=== PATIENT | male | born 1965 | race Caucasian/White ===

== ENCOUNTER 2017-07-24 21:29 | Emergency (ER) | payer OTHER ==
[~2017-07-24] VITALS: Ht 175.3 cm; Wt 97.7 kg
[~2017-07-24 21:29] MED LIST: CEPH250 PO; CIAL20TA PO; ESOM1CAP6 PO; HYDR25TA5 PO; LISI-515 PO; PERC5TAB12 PO; PRAV40TA2 PO
[2017-07-24 21:35] VITALS: BP 133/66; PULSE 92; RESP 16; TEMP 98.1
[2017-07-24 21:42] VITALS: BP 141/67; PULSE 89; RESP 16; O2SAT 96
[2017-07-24] MEDS ORDERED: SODIUM CHLOR 0.9% 1000 ML INJ 1,000 ML IV ONE (21:51)
[2017-07-24] MEDS ORDERED: SODIUM CHLORIDE 0.9% FLUSH 10 ML FLUSH IVF PRN (22:00)
[2017-07-24 22:21] LABS: AUTOMATED NEUTROPHIL # 7.8 TH/MM3 (1.8-7.7); BASOPHIL # 0.2 TH/MM3 (0-0.2); BASOPHIL % 1.3 % (0.0-2.0); EOSINOPHIL # 0.1 TH/MM3 (0-0.4); EOSINOPHIL % 0.9 % (0.0-4.0); HEMATOCRIT 48.3 % (39.0-51.0); LYMPH % 20.8 % (9.0-44.0); LYMPHOCYTE # 2.4 TH/MM3 (1.0-4.8); MEAN CELL VOLUME 90.1 FL (80.0-100.0); MEAN CORPUSCULAR HEMOGLOBIN 31.2 PG (27.0-34.0); MEAN CORPUSCULAR HGB CONC 34.6 % (32.0-36.0); MONO % 9.5 % (0.0-8.0); NEUT % 67.5 % (16.0-70.0); PLATELET COUNT 204 TH/MM3 (150-450); RED BLOOD COUNT 5.36 MIL/MM3 (4.50-5.90); RED CELL DISTRIBUTION WIDTH 13.1 % (11.6-17.2); WHITE BLOOD COUNT 11.6 TH/MM3 (4.0-11.0)
[2017-07-24 22:22] LABS: HEMO FLAGS AUTO DIFF
[2017-07-24 22:40] LABS: ANION GAP 12 MEQ/L (5-15); BLOOD UREA NITROGEN 12 MG/DL (7-18); CHLORIDE 94 MEQ/L (98-107); GLOMERULAR FILTRATION RATE 65 ML/MIN (>89); MAGNESIUM 2.1 MG/DL (1.5-2.5); POTASSIUM 3.1 MEQ/L (3.5-5.1); SODIUM (NA) 133 MEQ/L (136-145)
[2017-07-24 22:42] VITALS: BP 138/83; PULSE 84; RESP 16; O2SAT 96
[2017-07-24 22:44] LABS: CREATINE KINASE 524 U/L (39-308)
[2017-07-24 22:56] LABS: CKMB 2.9 NG/ML (0.5-3.6)
--- NOTE | 2017-07-24 22:59 | PD ---
HPI Chief Complaint: Syncope/Near-Syncope Time Seen by Provider: 21:36 Travel History International Travel<30 days: No Contact w/Intl Traveler<30days: No Traveled to known affect area: No History of Present Illness HPI 52-year-old male was on his second slice of [employer] when he suddenly became unresponsive. He is unresponsive on and off for his to call EMS and he recalls their arrival however nothing in the interim. EMS reports of blood pressure on scene of 98 systolic. Profuse diaphoresis reported by patient. He states today was a normal day for him with compliance with antihypertensives including hydrochlorothiazide and lisinopril. He has no chest pain shortness of breath nausea vomiting or fever in the ER.. PFSH Past Medical History Anxiety: Yes Depression: Yes Heart Rhythm Problems: No Cardiac Catheterization: No Cardiovascular Problems: Yes High Cholesterol: Yes Congestive Heart Failure: No Diabetes: No Hypertension: Yes Myocardial Infarction: No Tetanus Vaccination: > 5 Years Influenza Vaccination: No Past Surgical History Coronary Artery Bypass Graft: No Tonsillectomy: Yes (AGE 3) Other Surgery: Yes (vasectomy) Social History Alcohol Use: Yes (3-4 BEERS/DAY) Tobacco Use: Yes (1 PPD) Substance Use: No Allergies-Medications (Allergen,Severity, Reaction): Coded Allergies: atorvastatin (Verified Allergy, Unknown, Cramping, 07/24/17) Reported Meds & Prescriptions Reported Meds & Active Scripts Active Pravastatin 40 Mg Tab 40 Mg PO DAILY Lisinopril 20 Mg Tab 20 Mg PO DAILY Hydrochlorothiazide 25 Mg Tab 25 Mg PO DAILY Cialis (Tadalafil) 20 Mg Tab 20 Mg PO DAILY PRN Do not exceed 1 dose/day. Review of Systems Except as stated in HPI: all other systems reviewed are Neg General / Constitutional: No: Fever Physical Exam Narrative GENERAL: 52-year-old male well-nourished well-developed no acute distress SKIN: Skin is warm dry well perfused. HEAD: Atraumatic. Normocephalic. EYES: Extractor muscles are normal. He was are equal round and reactive to light. Gaze is conjugate. ENT: No nasal bleeding or discharge. Mucous membranes pink and moist. NECK: Trachea midline. No JVD. CARDIOVASCULAR: No murmur. Regular rhythm. Rate about 80. RESPIRATORY: No accessory muscle use. Clear to auscultation. Breath sounds equal bilaterally. GASTROINTESTINAL: Abdomen soft, non-tender, nondistended. Hepatic and splenic margins not palpable. MUSCULOSKELETAL: Extremities without clubbing, cyanosis, or edema. No obvious deformities. NEUROLOGICAL: Awake and alert. No obvious cranial nerve deficits. Motor grossly within normal limits. Five out of 5 muscle strength in the arms and legs. Normal speech. PSYCHIATRIC: No suicidal or homicidal ideation. Data Data Last Documented VS Vital Signs Date Time Temp Pulse Resp B/P (MAP) Pulse Ox O2 Delivery O2 Flow Rate FiO2 07/24/17 23:11 81 16 134/68 (90) 98 07/24/17 22:42 Room Air 07/24/17 21:35 98.1 Vital signs reviewed Orders Orders Electrocardiogram (07/24/17 21:51) Basic Metabolic Panel (Bmp) (07/24/17 21:51) Complete Blood Count With Diff (07/24/17 21:51) Magnesium (Mg) (07/24/17 21:51) Ckmb (Isoenzyme) Profile (07/24/17 21:51) Troponin I (07/24/17 21:51) Ecg Monitoring (07/24/17 21:51) Iv Access Insert/Monitor (07/24/17 21:51) Oximetry (07/24/17 21:51) Sodium Chloride 0.9% Flush (Ns Flush) (07/24/17 22:00) Sodium Chlor 0.9% 1000 Ml Inj (Ns 1000 M (07/24/17 21:51) CKMB (07/24/17 21:57) CKMB% (07/24/17 21:57) Ed Discharge Order (07/24/17 22:59) Labs Laboratory Tests Test 07/24/17 21:57 White Blood Count 11.6 TH/MM3 Red Blood Count 5.36 MIL/MM3 Hemoglobin 16.7 GM/DL Hematocrit 48.3 % Mean Corpuscular Volume 90.1 FL Mean Corpuscular Hemoglobin 31.2 PG Mean Corpuscular Hemoglobin Concent 34.6 % Red Cell Distribution Width 13.1 % Platelet Count 204 TH/MM3 Mean Platelet Volume 10.5 FL Neutrophils (%) (Auto) 67.5 % Lymphocytes (%) (Auto) 20.8 % Monocytes (%) (Auto) 9.5 % Eosinophils (%) (Auto) 0.9 % Basophils (%) (Auto) 1.3 % Neutrophils # (Auto) 7.8 TH/MM3 Lymphocytes # (Auto) 2.4 TH/MM3 Monocytes # (Auto) 1.1 TH/MM3 Eosinophils # (Auto) 0.1 TH/MM3 Basophils # (Auto) 0.2 TH/MM3 CBC Comment AUTO DIFF Differential Comment AUTO DIFF CONFIRMED Blood Urea Nitrogen 12 MG/DL Creatinine 1.18 MG/DL Random Glucose 141 MG/DL Calcium Level 8.9 MG/DL Magnesium Level 2.1 MG/DL Sodium Level 133 MEQ/L Potassium Level 3.1 MEQ/L Chloride Level 94 MEQ/L Carbon Dioxide Level 27.0 MEQ/L Anion Gap 12 MEQ/L Estimat Glomerular Filtration Rate 65 ML/MIN Total Creatine Kinase 524 U/L Creatine Kinase MB 2.9 NG/ML Creatine Kinase MB % 0.6 % Troponin I LESS THAN 0.02 NG/ML MDM Medical Decision Making Medical Screen Exam Complete: Yes Emergency Medical Condition: Yes Medical Record Reviewed: Yes Differential Diagnosis arrhythmia, metabolic disarray, anemia, renal failure, medication side effect Narrative Course CBC & BMP Diagram 07/24/17 21:57 Calcium Level 8.9, Magnesium Level 2.1 EKG: sinus, rate 90, normal axis/intervals, no pre-excitation syndrome The patient is resting comfortably and feels better, is alert and in no distress. The patients results and examination findings were discussed. The repeat examination is unremarkable and benign. The history, exam, diagnostic testing, and current condition do not suggest any significant pathology to warrant further testing, continued ED treatment, admission, or surgical evaluation at this point. The vital signs have been stable. The patient does not have uncontrollable pain, intractable vomiting, or other significant symptoms. The patient's condition is stable and appropriate for discharge. The patient will pursue further outpatient evaluation with a primary care physician or other designated or consulting physician as indicated in the discharge instructions. The patient expressed understanding and was agreeable with this plan. Diagnosis Primary Impression: Syncope Qualified Codes: R55 - Syncope and collapse Referrals: Primary Care Physician 2 days Med/Other Pt SpecificInfo: No Change to Meds Disposition: 01 DISCHARGE HOME Condition: Stable Leonel Mistry MD Jul 24, 2017 22:59
[2017-07-24 23:11] VITALS: BP 134/68
[2017-07-25 00:22] LABS: SCAN/DIFF AUTO DIFF CONFIRMED
[2017-07-25] MEDS ORDERED: KLOR25PO2 (16:42)
--- NOTE | 2017-07-25 18:16 | EKG ---
Date Performed: 07/24/2017 Time Performed: 21:40:59 PTAGE: 52 years EKG: Sinus rhythm NONSPECIFIC T-WAVE ABNORMALITY BORDERLINE ECG PREVIOUS TRACING : 04/22/[address] abnormality new from the prior tracing. DOCTOR: Samy Morgan Interpretating Date/Time 07/25/2017 18:14:56
== END 2017-07-24 23:23 | disposition home or self-care (01) ==
LOC: NEPE 21:29
DX: R55 Syncope and collapse (principal); R94.31 Abnormal electrocardiogram [ECG] [EKG]; F41.9 Anxiety disorder, unspecified; F32.9 Major depressive disorder, single episode, unspecified; E78.00 Pure hypercholesterolemia, unspecified; I10 Essential (primary) hypertension; F17.200 Nicotine dependence, unspecified, uncomplicated; Z79.899 Other long term (current) drug therapy
CPT/HCPCS: 80048; 82550; 82552; 83735; 84484; 85025; 93005; 96360; 99284; J7030